=== PATIENT | female | born 1965 | race Caucasian/White ===

== ENCOUNTER 2023-08-09 21:56 | Emergency (ER) | payer BC ==
[~2023-08-09] VITALS: Ht 160 cm; Wt 81.6 kg
[2023-08-09 22:33] VITALS: BP_SYST 134; PULSE 88; RESP 18; TEMP 98.3; O2SAT 97
[2023-08-10] MEDS ORDERED: KETOROLAC TROMETHAMINE 60 MG/2 ML VIAL IM ONE (01:15)
[2023-08-10 02:00] VITALS: BP_SYST 134; PULSE 88; RESP 18; TEMP 98.3; O2SAT 97
[2023-08-10] MEDS ORDERED: NAPR-1172 PO (02:06)
== END 2023-08-10 02:00 | disposition home or self-care (01) ==
LOC: SED 21:56
DX: S00.03XA Contusion of scalp, initial encounter (principal); I10 Essential (primary) hypertension; Z79.899 Other long term (current) drug therapy; W01.0XXA Fall on same level from slipping, tripping and stumbling without subsequent striking against object, initial encounter; Y93.89 Activity, other specified; Y92.89 Other specified places as the place of occurrence of the external cause; Y99.8 Other external cause status
CPT/HCPCS: 99285; 70450; 93005; 72125; 76376; 96372; J1885